=== PATIENT | female | born 2000 | race Caucasian/White ===

== ENCOUNTER 2024-11-16 09:43 | Outpatient (AMB) | payer OTHER, SELFPAY ==
--- NOTE | 2024-11-16 09:51 | A.OFFPC_ITS ---
Vital Signs 11/16/24 09:54 Height 5 ft 4.96 in Weight 149 lb 2 oz BMI 24.8 BP 94/64 Blood Pressure Location Lt brachial Position Sitting Respiration 12 Pulse 86 Pulse Source Pulse Oximeter Pulse Oximetry (%) 97 Oxygen Delivery Method Room Air Oxygen Flow Rate 97.8 Intake Visit Reasons: Ear infection Intake Note: Left ear pain, both ears blocked. Obgyn Specialist Required: No Allergies No Known Allergies Allergy (Verified 11/16/24 09:55) Medication List - Last Reconciled 11/16/24 by Margaret Clark PA-C cetirizine (Zyrtec) 10 mg PO DAILY PRN norethindrone-e.estradiol-iron 1.5 mg-30 mcg (21)/75 mg (7) ( FE .12/09 ()) 1 tab PO DAILY Tobacco use date assessed: 11/16/24 Dental Screening Dental Screen Date: 11/16/24 Did you have a dental visit in the last 12 months?: Yes Did you have a dental problem in the last 6 months where you did not have access to dental care?: No Was dental information given to patient?: Patient has dentist HPI Ear infection HPI Details Patient is a 24-year-old female who presents today to establish care and for an acute problem visit. She denies any significant past medical history. Heme: She is a bit concerned because she feels that she bruises very easily. She states that she would like labs to make sure that there is nothing wrong. She had a cousin who of leukemia recently and her maternal grandmother has CLL. She also does endorse feeling tired a lot. She is not sure if it is related to life or there is something wrong. She does sleep well. No snoring. Does get regular menses that she is on OCPs. HEENT: Does report today that she made this appointment because she has been having left-sided ear pain and popping along with some right-sided ear discomfort, sinus pain and pressure for the last 2 weeks. She says that she had a cold 2 weeks ago it started to get better last week but then it came back in over the last week it has gotten worse. No fevers or chills. She is compliant with Zyrtec. MSK: She does report having some joint pain, back pain and just generalized discomfort. She says specifically her right knee has been painful for the last year. It is mostly in the medial aspect. At times it feels like it gives out. She has tried resting, stretching and massage therapy. She does like exercising and states that sometimes she feels limited with what she can do. She saw a massage therapist who states that she is not exactly sure what is wrong with it. No swelling. There was no specific trauma. Never had surgery for this. Tag Maker: Up-to-date REPLACED BY [facility] Medical History (Updated 11/16/24 @ 12:50 by Margaret Clark PA-C) No history of major surgery within 1 month Family History (Updated 11/16/24 @ 10:58 by Vibha Brown CMA) Maternal Grandfather Anxiety HTN (hypertension) High blood cholesterol Cardiovascular disease Maternal Grandmother Anxiety High blood cholesterol Cardiovascular disease Mother Anxiety Asthma Enlarged thyroid Other FH: mental illness Substance abuse Social History Housing: House Patient Tobacco Use Status: Never used Tobacco e-Cigarette/Vaping Use: Never Used Second Hand Smoke Exposure: No Current occupational status: employed and student 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 Going to school to be a nurse Current occupational exposures/hazards: No Cognitive needs: No Hearing needs: No Vision needs: Yes (glasses) Questionnaire PHQ-9 Over the last 2 weeks, how often have you been bothered by any of the following problems? 1. Little interest or pleasure in doing things: not at all 2. Feeling down, depressed, or hopeless: not at all 3. Trouble falling or staying asleep, or sleeping too much: not at all 4. Feeling tired or having little energy: not at all 5. Poor appetite or overeating: not at all 6. Feeling bad about yourself - or that you are a failure or have let yourself or your family down: not at all 7. Trouble concentrating on things, such as reading the newspaper or watching television: several days 8. Moving or speaking so slowly that other people could have noticed. Or the opposite - being so fidgety or restless that you have been moving around a lot more than usual: not at all 9. Thoughts that you would be better off or of hurting yourself in some wa y: not at all Total score: 1 Depression Screening Interpretation: Negative Depression Screening Done: Yes 69908 - PHQ-9 Billing: Yes Source: Developed by Drs. Donald Ospina, Noa Smith, Philippe Devi and colleagues, with an educational sarai from [employer]. Thrive Questionnaire Date Thrive assessed: 11/16/24 I am a: Patient What is your living situation today?: I have a steady place to live Within the past 12 months, did the food you bought not last and you didn't have the money to get more?: Never true Within the past 12 months, did you worry whether your food would run out before you got money to buy more?: Never true Do you have trouble paying for medicines?: No Do you have trouble getting transportation to medical appointments?: No Do you have trouble paying your heating and electricity bill?: No Do you have trouble taking care of your child, family member or friend?: No Do you have trouble with day-to-day activities such as bathing, preparing meals, shopping, managing finances, etc.?: No Are you currently unemployed and looking for a job?: No Are you interested in more education?: No Currently or been in a relationship where the following occur: No concerns reported THRIVE Score: 0 AUDIT C Alcohol Use Questionnaire (AUDIT-C) 1. How often do you have a drink containing alcohol?: Monthly or less 2. How many drinks containing alcohol do you have on a typical day when you are drinking?: 1 or 2 3. How often do you have six or more drinks on one occasion?: Never Total Score: 1 EFREN-7 AMB Questionnaire EFREN-7 Date EFREN - 7 assessed: 11/16/24 Feeling nervous, anxious, or on edge: 1 = Several days Not being able to stop or control worryin = Not at all Worrying too much about different things: 1 = Several days Trouble relaxin = Not at all Being so restless that it is hard to sit still: 1 = Several days Becoming easily annoyed or irritable: 0 = Not at all Feeling afraid as if something awful might happen: 0 = Not at all Total EFREN-7 score (0-4 normal; 5-9 mild; 10-14 moderate; 15-21 severe): 3 Source: Developed by Drs. Donald Ospina, Noa mSith, Philippe Devi and colleagues, with an educational sarai from [employer]. EFREN-7 Assessment Billing EFREN-7 Assessment Tool: EFREN-7 Assessment 89562 Physical exam (Primary Care) Vital Signs: Last Vital Signs Pulse 86 11/16/24 09:54 Resp 12 11/16/24 09:54 BP 94/64 11/16/24 09:54 Pulse Ox 97 11/16/24 09:54 Oxygen Delivery Method Room Air 11/16/24 09:54 Oxygen Flow Rate 97.8 11/16/24 09:54 BMI result Body Mass Index 24.8 Tobacco/Smoking Status: Tobacco use Status Tobacco use date assessed 11/16/24 11/16/24 10:05 Patient Tobacco Use Status Never used Tobacco 11/16/24 10:05 e-Cigarette/Vaping Use Never Used 11/16/24 10:05 Depression Screening Interpretation: Negative Currently or been in a relationship where the following occur: No concerns reported Const Orientation/consciousness: patient oriented x3 HENMT Other: TMs are dome-shaped with an effusion noted on the left. There is some dulling of the TMs bilaterally. Nasal mucosa erythematous and edematous. Purulent drainage noted. Left maxillary sinus tenderness present. The posterior oropharynx is slightly erythematous. cervical lymphadenopathy noted Ears: hearing grossly normal bilaterally Neck Thyroid: Thyroid normal Resp Auscultation: clear to auscultation bilaterally Cardio Rate: regular rate Rhythm: regular rhythm Heart sounds: S1 normal heart sound present and S2 normal heart sound present GI Inspection: Yes normal to inspection Palpation (GI): Soft to palpation and Other GI palpation findings present (nontender, no cva tenderness) Auscultation: normoactive bowel sounds Rectal Exam - Female: deferred Skin General skin exam: no rashes or lesions noted Neuro General: patient oriented x3, gait normal and no focal motor deficits Coding Level of Care Code New Pt Level 3 (06933) Complex EM visit Add On G2211 Diagnoses Easy bruising R23.3 Fatigue R53.83 Right knee pain M25.561 Bacterial sinusitis J32.9; B96.89 Additional Codes EFREN-7 Assessment Billing - EFREN-7 Assessment Tool: EFREN-7 Assessment 73203 ([id number]) PHQ-9 - 58299 - PHQ-9 Billing: Yes ([id number]) Assessment & Plan Assessment & Plan (1) Easy bruising: Code(s): R23.3 - Spontaneous ecchymoses Category: Medical Plan: Labs ordered today. We will follow up Denies any bruising around the belt line, petechial rashes, spontaneous bloody noses, easy bleeding of the gums (2) Fatigue: Code(s): R53.83 - Other fatigue Category: Medical Plan: Labs ordered (3) Right knee pain: Code(s): M25.561 - Pain in right knee Category: Medical Plan: X-ray ordered Referral to ortho (4) Bacterial sinusitis: Code(s): J32.9 - Chronic sinusitis, unspecified; B96.89 - Other specified bacterial agents as the cause of diseases classified elsewhere Plan: We will start Augmentin and Flonase. Discussed risks and benefits and adverse effects of this medication. Orders: Orders IRON PROFILE Today R23.3 - Spontaneous ecchymoses, R53.83 - Other fatigue Ferritin Today R23.3 - Spontaneous ecchymoses, R53.83 - Other fatigue Erythrocyte Sedimentation Rate Today R23.3 - Spontaneous ecchymoses, R53.83 - Other fatigue Vitamin B12 and Folate Today R23.3 - Spontaneous ecchymoses, R53.83 - Other fatigue Rheumatoid Factor Today R23.3 - Spontaneous ecchymoses, R53.83 - Other fatigue XR knee RT 2V Today M25.561 - Pain in right knee, M25.562 - Pain in left knee Complete Blood Count Auto Diff Today R23.3 - Spontaneous ecchymoses, R53.83 - Other fatigue Comprehensive [place]. Panel Fast Today R23.3 - Spontaneous ecchymoses, R53.83 - Other fatigue DANTE Reflex Titer and Pattern Today R23.3 - Spontaneous ecchymoses, R53.83 - Other fatigue Magnesium Today R23.3 - Spontaneous ecchymoses, R53.83 - Other fatigue TSH reflex Free T4 Today R23.3 - Spontaneous ecchymoses, R53.83 - Other fatigue Lyme IgG/IgM w/reflex to WB Today R23.3 - Spontaneous ecchymoses, R53.83 - Other fatigue Vitamin D 25-OH Total Today R23.3 - Spontaneous ecchymoses, R53.83 - Other fatigue Referrals Orthopedics Referral M25.561 - Pain in right knee Medications: New amoxicillin-pot clavulanate 385-125 mg 1 tab PO Q12H 20 tabs 0RF fluticasone propionate 50 mcg/actuation (Flonase Allergy Relief) administer into each nostril 2 sprays intranasal DAILY 16 grams 0RF
[2024-11-16 09:54] VITALS: BP 94/64; PULSE 86; RESP 12; O2SAT 97; BMI 24.8
--- OUTSIDE RECORDS SUMMARY | 2024-11-16 10:36 | XMS_ITS | Encounter Summary ---
Author Organization [facility] Address [address] [place], [place] [id number] Phone Care Team Providers Care Professor Of Languages Name Role Phone Serenity Antunez NP Primary Care Provider [phone] Encounter Details Date Type Department Care Team (Late st Contact Info) Description 10/24/2010 Conversion Encounter [facility] [address] [place] [address] Social History Tobacco Use Types Packs/Day Years Used Date Smoking Tobacco: Never Assessed Comments Unknown Sex and Gender Information Value Date Recorded Sex Assigned at Female 09/16/2023 8:18 AM EST Legal Sex Female 6:24 PM EDT Gender Identity Female 09/16/2023 8:18 AM EST Sexual Orientation Bisexual 09/16/2023 8: 18 AM EST documented as of this encounter Plan of Treatment Not on file documented as of this encounter Visit Diagnoses Not on filedocumented in this encounter Care Teams Professor Of Languages Relationship Specialty Start Date End Date Serenity Antunez NP [address] [place] [address] PCP - General Pediatrics 12/30/22 documented as of this encounter
--- OUTSIDE RECORDS SUMMARY | 2024-11-16 10:36 | XMS_ITS | Clinical Summary ---
Author Organization [facility] Address [address] [place] [phone] Phone Care Team Providers Care Lap Layer Name Role Phone Serenity Antunez NP Primary Care Provider [phone] Allergies No known active allergies Medications albuterol HFA (ProAir HFA) 108 (90 Base) MCG/ACT inhalerIndication s:Mild intermittent asthma without complication Inhale 2 puffs every 4 (four) hours as needed for wheezing or shortness of breath. 2 Units 2 03/21/20 24 Active cetirizine 10 MG tabletIndications :Seasonal allergic rhinitis due to pollen TAKE 1 TABLET BY MOUTH EVERY DAY AT NIGHT 90 tablet 03/23/20 24 Active FE .12/09 1.5-30 MG-MCG per tabletIndications :Encounter for surveillance of contraceptive pills TAKE 1 TABLET BY MOUTH EVERY DAY 84 tablet 2 11/04/19 25 Active FE .12/09 1.5-30 MG-MCG per tabletIndications :Encounter for surveillance of contraceptive pills TAKE 1 TABLET BY MOUTH EVERY DAY 84 tablet 3 10/20/19 24 025 Discontinued Active Problems Problem Noted Date Diagnosed Date Well adult exam 09/16/2023 Assessment & Plan (09/16/2023 9:34 AM EST): Growing and developing well [facility] counseling completed Young Adult Plan: Get 8-9 hours of sleep per night. Eat healthy diet including 5 servings fruits and vegetables, no daily soda or juice, 3 servings calcium rich foods daily. Get one hour of exercise daily. Wear seatbelt in car, helmet while riding bike. Dental checkup every 6 months If wears eyeglasses or contacts, vision exam yearly Personal space, safe sex, bullying counseling done. Influenza vaccine refused 08/08/2019 Extrinsic asthma 10/19/2017 Overview (08/06/2018): Reactive airway disease (493.00) Onset: 10/19/2017 Added by: Loan Lopez Assessment & Plan (09/16/2023 9:34 AM EST): Well controlled with albuterol as needed - usually with exercise. Generalized anxiety disorder 12/09/2012 Overview (08/06/2018): Anxiety (300.02) Onset: 12/09/2012 Added by: Loan Lopez Assessment & Plan (09/16/2023 9:34 AM EST): Doing ok. Considering therapy. Aware of [facility] here and will let us know if she would like a referral. Attention deficit disorder with hyperactivity Overview (08/06/2018): ADHD (314.01) Onset: 08/11/2012 Added by: Loan Lopez Assessment & Plan (09/16/2023 9:34 AM EST): Managed well without medication. Resolved Problems Problem Noted Date Diagnosed Date Resolved Date Sore throat 01/27/2020 08/15/2022 Seasonal allergic rhinitis due to pollen 03/30/2019 09/16/2023 Assessment & Plan (03/30/2019 11:46 AM EDT): Differential includes AOM, pneumonia, viral URI, allergic rhinitis. No signs of AOM or pneumonia. Most likely allergic rhinitis with pressure in the middle ear. No signs of viral illness. Discussed supportive therapy with fluids, loratadine and nasal saline rinse. Return for increasing or changes in ear pain, fever, trouble breathing or new symptom. Acute dysfunction of both eustachian tubes 09/27/2018 09/16/2023 Influenza vaccine refused 08/05/2018 Surveillance of previously p rescribed contraceptive pill 10/19/2017 09/16/2023 Overview (08/06/2018): Routine follow-up for control pill prescription (V25.41) Onset: 10/19/2017 Added by: Loan Lopez Encounters Date Type Department Care Team Description 11/01/2024 Refill [facility] [address] [place], [place] [address] Serenity Antunez, DAVID Encounter for surveillance of contraceptive pills from Last 3 Months Immunizations Immunization Administration Dates Next Due DTaP 5 03/02/2006, 3,2001,08/12,2001 H1N1 Inj 07/24/2009,06/21/2009 Hep A, ped/adol 02/03/2017,07/29/2016 Hep B, ped/adol 07/18/2002,2001,2001 Hib (PRP-T) 12/09/2002, 2,2001,05/27 IPV 03/02/2006, 3,2001,05/27 Influenza, injectable, MDCK, trivalent, preservative free 03/28/2024 Influenza, injectable, quadr ivalent, preservative free 08/14/2022,08/09/2020,08/08/2019 Influenza, intranasal, quadrivalent 06/18/2015,1 Influenza, intranasal, trivalent 013,07/29/2012,04/16/2011,04/11,06/02/2008 MMR 03/02/2006,03/30/2002 Meningococcal Conj (Menactra) MCV4P 07/30/2017,0 07/29/2012 Pneumococcal Polysaccharide 12/10/2007,0 2001,2001,05/27 Tdap 08/14/2022,07/29/2012 Varicella 03/31/2007,03/30/2002 Family History Medical History Relation Name Comments No Known Problems Half-Brother 1 Yifan No Known Problems Half-Brother 2 Danny No Known Problems Mother Sadie Relation Name Status Comments Father not in the picture Alive Half-Brother 1 Yifan Alive Half-Brother 2 Danny Alive Mother Sadie Alive Social History Tobacco Use Types Packs/Day Years Used Date Smoking Tobacco: Never Smokeless Tobacco: Never Comments:Never Smoker Alcohol Use Standard Drinks/Week Comments Yes 0 (1 standard drink = 0.6 oz pur e alcohol) Hunger/Food Answer Date Recorded In the last 12 months, did y ou or your family ever eat less than you felt you should because there wasn't enough money for food? No 03/21/2024 Stable Housing Answer Date Recorded Are you worried that in the next 2 months you may not have stable housing? No 03/21/2024 Transportation Concerns Answer Date Rec orded In the last 12 months, have you or your family ever had to go without healthcare because you didn't have a way to get there? No 03/21/2024 Hazards in Home Answer Date Recorded Think about the place you li ve. Do you have problems with any of the following? Pests (mice or roaches), mold, no/not working smoke detectors, water leaks, no window guards. No 2023 Financing Utilities Answer Date Recorde d In the last 12 months, has t he electric, gas, oil, or water company threatened to shut off your services in your home? No 03/21/2024 Safety at Home Answer Date Recorded Are you or your family worried about feeling saf e in your home? No 03/21/2024 Outside Support Answer Date Recorded Do you feel that you need mo re support from other people or programs to help you care for yourself or your family? No 03/21/2024 Understanding Health Concerns Answer Da te Recorded Do you need help understandi ng your or your child's healthcare needs (diagnosis, medications, plan, etc.)? No 03/21/2024 Financing Health Concerns Answer Date R ecorded In the last 12 months, was t here a time when your child needed to see a doctor or get medications or supplies but could not because of cost? No 03/21/2024 Missing School or Work Answer Date Garland rded Did you or your child miss s chool or work because of a health problem that could have been avoided? No 03/21/2024 Child Education Answer Date Recorded Do you have concerns about y our/your child's learning or behavior in school, preschool, or daycare? No 03/21/2024 Comments No Sex and Gender Information Value Date Recorded Sex Assigned at Female 09/16/2023 8:18 AM EST Legal Sex Female 6:24 PM EDT Gender Identity Female 09/16/2023 8:18 AM EST Sexual Orientation Bisexual 09/16/2023 8: 18 AM EST Last Filed Vital Signs Vital Sign Reading Time Taken Comments Blood Pressure 112/74 03/21/2024 8:04 AM EDT Pulse 80 09/16/2023 8:00 AM EST Temperature 36.6 ??C (97.9 ??F) 03/21/2024 8:04 AM ED T Respiratory Rate - - Oxygen Saturation - - Inhaled Oxygen Concentration - - Weight 70.8 kg (156 lb) 03/21/2024 8:04 AM EDT Height 166.4 cm (5' 5.5 ) 03/21/2024 8:04 AM EDT Body Mass Index 25.56 03/21/2024 8:04 AM EDT Plan of Treatment Health Maintenance Due Date Last Done Comments HPV Vaccines (1 - 3-dose series) 2016 Men B Vaccine (1 of 2 - Standard) 2017 COVID-19 Vaccine ( season) 2024 11/08/2020, 10/18/2020 Chlamydia and Gonorrhea Screening 07/13/2024 09/16/2023, 08/12/2021, 08/09/2020 DTaP,Tdap,and Td Vaccines (8 - Td or Tdap) 08/14/2032 08/14/2022, 07/29/2012, 03/02/2006, Additional history exists Hepatitis B Vaccines Completed 07/18/2002, 2001, 2001 HIB Vaccines Completed 12/09/2002, 0 07/2001, 2001, Additional history exists IPV Vaccines Completed 03/02/2006, 11/12, 2001, Additional history exists MMR Vaccines Completed 03/02/2006, 03/30/2002 Varicella Vaccines Completed 03/31/2007, 03/30/2002 Pneumococcal Vaccine Aged Out 12/10/2007, 2001, 2001, Additional history exists No longer eligible based on patient's age to complete this topic Hepatitis A Vaccines Completed 02/03/2017, 07/29/19 17 Meningococcal Vaccine Completed 07/30/2017, 013 Influenza Vaccines Completed 03/28/2024, 0 08/14/2022, 08/09/2020, Additional history exists Procedures * Due to [place] [employer] law, this organization might not be sharing sensitive test results. Procedure Name Priority Date/Time Associated Diagnosis Comments CHLAMYDIA GC AMP PROBE Routine 09/16/2023 8:10 AM EST Screening for STD (sexually transmitted disease) from Last 3 Months or Most Recently Relevant to Health Maintenance Results * Due to [place] [employer] law, this organization might not be sharing sensitive test results. * CHLAMYDIA GC AMP PROBE (09/16/2023 8:10 AM EST) Chlamydia Trachomatis, Amplified NEGATIVE (NEG) [facility] Comment: No Chlamydia Trachomatis RNA detected in this patient's sample ? (REFERENCE RANGE/NORMAL VALUE: NOT DETECTED) ? Note: This test uses upper cutter- mediated amplification method to detect rRNA from C. Trachomatis N.GONORRHOEAE AMP PROBE NEGATIVE (NEG) [facility] Comment: No Neisseria Gonorrhoeae RNA detected in this patient's sample ? (REFERENCE RANGE/NORMAL VALUE: NOT DETECTED) ? NOTE: This test uses upper cutter-mediated amplification method to detect rRNA from N.Gonorrhoeae. A negative result does not preclude infection. In the case of a negative urine result, testing of an endocervical(female) or urethral (male) specimen is recommended if there is high clinical suspicion of infection. Due to very high sensitivity of Nucleic Acid Amplification Test, false positive results may occur. Therefore, specimen handling is extremely important. In patients in whom the disease is unlikely, additional sample for testing should be considered after an initial positive result. The performance characteristics of this test have not been evaluated in children. The [employer] assay is not intended for the evaluation of suspected sexual abuse or for other medico-legal indications. The ordering provider should assess if the patient had consensual sex without risk of sexual abuse. Consult the [facility] if needed. Contact phone number . Therapeutic failure or success cannot be determined with the [employer] Combo2 assay since nucleic acid may persist following appropriate antimicrobial therapy. The Centers for Disease Control and Prevention (CDC) recommends confirmatory retesting using culture or a different nucleic acid amplification test when positive results occur, if indicated. CHLAM/GC AMP PROBE SPEC TYPE VAGINAL SPECIMEN [facility] Comment: Testing performed or reported by [facility], a Service of [facility], [facility] [place] [address] Luther Molina MD, Solar Energy Sales Specialist [facility]# [id number] Swab (Vagina) 09/16/2023 8:1 0 AM EST 09/16/2023 11:24 PM EST Serenity Antunez NP LAB MICROBIOLOGY - GENERAL ORD ERABLES Final Result [facility] from Last 3 Months or Most Recently Relevant to Health Maintenance Insurance [employer] [facility] [place] [id number] [place] [id number] Care Teams Lap Layer Relationship Specialty Start Date End Date Serenity Antunez NP [facility] [place] [address] PCP - General Pediatrics 12/30/22
== END 2024-11-16 10:43 | disposition home or self-care (01) ==
LOC: HO.HMCFM 09:43
PROVIDERS: PCP Internal Medicine; Visit Provider Physician Assistant
DX: R23.3 Spontaneous ecchymoses (principal); R53.83 Other fatigue; M25.561 Pain in right knee; J32.9 Chronic sinusitis, unspecified; B96.89 Other specified bacterial agents as the cause of diseases classified elsewhere

== ENCOUNTER → 2024-11-16 09:43 | Outpatient (BNVA) | payer OTHER, SELFPAY | PROVIDERS: PCP Internal Medicine; Visit Provider Physician Assistant | DX: R23.3 Spontaneous ecchymoses (principal); R53.83 Other fatigue; M25.561 Pain in right knee; J32.9 Chronic sinusitis, unspecified; B96.89 Other specified bacterial agents as the cause of diseases classified elsewhere | CPT/HCPCS: 87880; 96127 ==

== ENCOUNTER 2024-11-16 11:02 | Outpatient (REF) | payer OTHER, SELFPAY ==
--- OUTSIDE RECORDS SUMMARY | 2024-11-16 12:27 | XMS_ITS | Clinical Summary ---
Author Organization [facility] Address [address] [place] [id number] Phone Care Team Providers Care Business Info Consultant Name Role Phone Serenity Antunez NP Primary Care Provider [phone] Allergies No known active allergies Medications albuterol [...] 9:34 AM EST): Growing and developing well [facility] counseling completed Young Adult Plan: Get 8-9 [...] EST): Doing ok. Considering therapy. Aware of [facility] here and will let us know if [...] Type Department Care Team Description 11/01/2024 Refill [facility] [address] [place], [place] [address] Serenity Antunez, DAVID Encounter for surveillance of [...] Additional history exists Procedures * Due to [place] DailyStrength law, this organization might not be sharing sensitive test results. Procedure Name Priority Date/Time Associated Diagnosis Comments CHLAMYDIA GC AMP PROBE Routine 09/16/2023 8:10 AM EST Screening for STD (sexually transmitted disease) from Last 3 Months or Most Recently Relevant to Health Maintenance Results * Due to [place] DailyStrength law, this organization might not be sharing sensitive test results. * CHLAMYDIA GC AMP PROBE (09/16/2023 8:10 AM EST) Chlamydia Trachomatis, Amplified NEGATIVE (NEG) [facility] Comment: No Chlamydia Trachomatis RNA detected in this patient's sample ? (REFERENCE RANGE/NORMAL VALUE: NOT DETECTED) ? Note: This test uses side stitching machine operator- mediated amplification method to detect rRNA from C. Trachomatis N.GONORRHOEAE AMP PROBE NEGATIVE (NEG) [facility] Comment: No Neisseria Gonorrhoeae RNA detected in this patient's sample ? (REFERENCE RANGE/NORMAL VALUE: NOT DETECTED) ? NOTE: This test uses side stitching machine operator-mediated amplification method to detect rRNA from N.Gonorrhoeae. [...] have not been evaluated in children. The [employer] Combo2 assay is not intended for the evaluation of suspected sexual abuse or for other medico-legal indications. The ordering provider should assess if the patient had consensual sex without risk of sexual abuse. Consult the [facility] if needed. Contact phone number . Therapeutic failure or success cannot be determined with the Aptima Combo2 assay since nucleic acid may persist following appropriate antimicrobial therapy. The Centers for Disease Control and Prevention (CDC) recommends confirmatory retesting using culture or a different nucleic acid amplification test when positive results occur, if indicated. CHLAM/GC AMP PROBE SPEC TYPE VAGINAL SPECIMEN [facility] Comment: Testing performed or reported by [facility], a Service of [facility], [facility] [place] [address] Luther Molina MD, Blurb Writer [facility]# [id number] Swab (Vagina) 09/16/2023 8:1 0 AM EST 09/16/2023 11:24 PM EST Serenity Antunez NP LAB MICROBIOLOGY - GENERAL ORD ERABLES Final Result [facility] from Last 3 Months or Most Recently Relevant to Health Maintenance Insurance [employer] [facility] [place] [id number] [address] [place] [id number] Care Teams Business Info Consultant Relationship Specialty Start Date End Date Serenity Antunez NP [facility] [place] [address] PCP - General Pediatrics 12/30/22
--- OUTSIDE RECORDS SUMMARY | 2024-11-16 12:27 | XMS_ITS | Encounter Summary ---
Author Organization [facility] Address [address] [place], [place] [id number] Phone Care Team Providers Care Mortgage Consultant Name Role Phone Serenity Antunez NP Primary Care Provider [phone] Encounter Details Date Type Department Care Team (Late st Contact Info) Description 10/24/2010 Conversion Encounter [facility] [address] [place] [address] Social History Tobacco Use Types Packs/Day Years [...] on filedocumented in this encounter Care Teams Mortgage Consultant Relationship Specialty Start Date End Date Serenity Antunez NP [address] [place] [address] PCP - General Pediatrics 12/30/22 documented as of this encounter
[2024-11-16 14:19] LABS: MANUAL DIFF FLAG NO
[2024-11-16 14:25] LABS: Basophils Percent Auto 0.3 % (0-2); Eosinophils Absolute Auto 0.1 X10*3/uL (0.0-0.4); Eosinophils Percent Auto 1.1 % (0-4); Hematocrit 42.5 % (37.0-47.0); Hemoglobin 14.1 g/dl (12.0-16.0); Imm Gran Abs Auto 0.02 X10*3/uL (0.00-0.03); Imm Gran Pct Auto 0.3 % (0.0-0.4); Lymphocytes Absolute Auto 1.9 X10*3/uL (1.2-4.9); Lymphocytes Percent Auto 26.4 % (20-40); Mean Corpuscular HGB Conc 33.2 g/dl (31.0-35.0); Mean Corpuscular Hemoglobin 31.4 pg (27.0-33.0); Mean Corpuscular Volume 94.7 fL (80.0-98.0); Mean Platelet Volume 9.4 fL (9.4-12.3); Monocytes Absolute Auto 0.4 X10*3/uL (0.1-1.2); Monocytes Percent Auto 6.2 % (2-11); Neutrophils Absolute Auto 4.7 x10*3/uL (2.0-8.3); Neutrophils Percent Auto 65.7 % (45-73); Platelet Count 285 X10*3/uL (160-400); Red Blood Count 4.49 X10*6/uL (4.20-5.50); Red Cell Distribution Width 12.1 % (11.0-16.0); White Blood Count 7.1 X10*3/uL (4.8-10.8)
[2024-11-16 14:37] LABS: Rheumatoid Factor < 13.0 IU/mL (<15.0)
[2024-11-16 14:47] LABS: Alanine Aminotransferase 19 U/L (0-31); Albumin Level 4.2 g/dL (3.5-5.0); Alkaline Phosphatase 65 U/L (39-117); Anion Gap 11 (12-20); Aspartate Amino Transferase 27 U/L (5-31); Bilirubin Total 0.5 mg/dL (0.0-1.0); Blood Urea Nitrogen 10 mg/dL (9-16); Calcium 9.6 mg/dL (8.4-10.2); Carbon Dioxide 30 mmol/L (22-29); Chloride 104 mmol/L (96-108); Estimated Glomerular Filt Rate > 60; Glucose Fasting 87 mg/dL (60-99); Iron 65 mcg/dL (30-160); Magnesium 2.3 mg/dL (1.6-2.6); Percent Iron Saturation 20 % (15-50); Potassium 4.4 mmol/L (3.3-5.1); Sodium 141 mmol/L (135-145); Total Iron Binding Capacity 324 mcg/dL (228-428); Total Protein 7.3 g/dL (6.5-8.0); Unsaturated Iron Binding 259 ug/dL
[2024-11-16 14:53] LABS: Ferritin 46 ng/mL (10-122); TSH reflex Free T4 0.62 uIU/mL (0.32-4.0); Vitamin D 25-OH Total 149.8 ng/mL (>30)
[2024-11-16 15:10] LABS: Folate 7.5 ng/mL (> or = 4.0); Vitamin B12 623 pg/mL (200-900)
[2024-11-16 15:32] LABS: Erythrocyte Sedimentation Rate 16 MM/HR (0-20)
[2024-11-17 11:08] LABS: Lyme Abs Screen <0.90 index
[2024-11-18 08:28] LABS: Anti Nuclear Antibody Screen NEGATIVE (NEGATIVE)
== END 2024-11-16 11:03 | disposition home or self-care (01) ==
LOC: HO.WFDLDS 11:02
PROVIDERS: Visit Provider Physician Assistant
DX: R23.3 Spontaneous ecchymoses (principal); R53.83 Other fatigue
CPT/HCPCS: 36415; 80053; 82306; 82607; 82728; 82746; 83540; 83735; 84443; 85025; 85652; 86038; 86431; 86617; 86618

== ENCOUNTER 2025-01-18 09:35 | Outpatient (REF) | payer OTHER, SELFPAY ==
--- OUTSIDE RECORDS SUMMARY | 2025-01-18 08:43 | XMS_ITS | Clinical Summary ---
Author Organization [facility] Address [address] [place] [address] Phone Care Team Providers Care Fishing Vessel Deckhand Name Role Phone Unavailable Primary Care Provider Unavailabl e Allergies No known active allergies Medications albuterol HFA (ProAir HFA) 108 (90 Base) MCG/ACT inhalerIndications :Mild intermittent asthma without complication Inhale 2 puffs every 4 (four) hours as needed for wheezing or shortness of breath. 2 Units 2 4 Active cetirizine 10 MG tabletIndications: Seasonal allergic rhinitis due to pollen TAKE 1 TABLET BY MOUTH EVERY DAY AT NIGHT 90 tablet 4 Active .5 1.5-30 MG-MCG per tabletIndications: Encounter for surveillance of contraceptive pills TAKE 1 TABLET BY MOUTH EVERY DAY 84 tablet 2 5 Active Active Problems Problem Noted Date Diagnosed Date Well adult exam 09/16/2023 Assessment & Plan (09/16/2023 9:34 AM EST): Growing and developing well [facility] counseling completed Young Adult Plan: Get [...] EST): Doing ok. Considering therapy. Aware of [facility] here and will let us know if [...] Type Department Care Team Description 11/01/2024 Refill [facility] [address] [place] [address] Serenity Antunez, CREDENTIALER Encounter for surveillance of contraceptive pills from [...] t he electric, gas, oil, or water [employer] threatened to shut off your services in [...] 80 09/16/2023 8:00 AM EST Temperature 36.6 C (97.9 F) 03/21/2024 8:04 AM EDT Respiratory Rate - - Oxygen Saturation - [...] of 2 - Standard) 2017 COVID-19 Vaccine (3 - season) 2024 11/08/2020, 10/18/2020 Influenza Vaccines (#1) 2025 03/28/20 24, 08/14/2022, 08/09/2020, Additional history exists DTaP,Tdap,and Td Vaccines (8 - Td or Tdap) 08/14/2032 08/14/2022, 07/29/2012, 03/02/2006, Additional history exists Hepatitis B Vaccines Completed 07/18/2002, 2001, 2001 HIB Vaccines Completed 12/09/2002, 040 07/2001, 2001, Additional history exists IPV Vaccines Completed 03/02/2006, 11/12, 2001, Additional history exists MMR Vaccines Completed 03/02/2006, 03/30/2002 Varicella Vaccines Completed 03/31/2007, 03/30/2002 Pneumococcal Vaccine Aged Out 12/10/2007, 2001, 2001, Additional history exists No longer eligible based on patient's age to complete this topic Hepatitis A Vaccines Completed 02/03/2017, 07/29/19 17 Meningococcal Vaccine Completed 07/30/2017, 013 Procedures * Due to [place] SocStock law, this organization might not be sharing sensitive test results. Procedure Name Priority Date/Time Associated Diagnosis Comments CHLAMYDIA GC AMP PROBE Routine 09/16/2023 8:10 AM EST Screening for STD (sexually transmitted disease) from Last 3 Months or Most Recently Relevant to Health Maintenance Results * Due to [place] SocStock law, this organization might not be sharing sensitive test results. * CHLAMYDIA GC AMP PROBE (09/16/2023 8:10 AM EST) Chlamydia Trachomatis, Amplified NEGATIVE (NEG) [facility] Comment: No Chlamydia Trachomatis RNA detected in this patient's sample (REFERENCE RANGE/NORMAL VALUE: NOT DETECTED) Note: This test uses concrete paving supervisor- mediated amplification method to detect rRNA from C. Trachomatis N.GONORRHOEAE AMP PROBE NEGATIVE (NEG) [facility] Comment: No Neisseria Gonorrhoeae RNA detected in this patient's sample (REFERENCE RANGE/NORMAL VALUE: NOT DETECTED) NOTE: This test uses concrete paving supervisor-mediated amplification method to detect rRNA from N.Gonorrhoeae. [...] have not been evaluated in children. The Aptima Combo2 assay is not intended for the evaluation of suspected sexual abuse or for other medico-legal indications. The ordering provider should assess if the patient had consensual sex without risk of sexual abuse. Consult the [facility] if needed. Contact [...] CHLAM/GC AMP PROBE SPEC TYPE VAGINAL SPECIMEN [facility] Comment: Testing performed or reported by [facility], a Service of [facility], [facility] [place] [address] Luther Molina MD, Railroad Purchasing Agent [facility]# [id number] Swab (Vagina) 09/16/2023 8:1 0 AM EST 09/16/2023 11:24 PM EST Serenity Antunez NP LAB MICROBIOLOGY - GENERAL ORD ERABLES Final Result [facility] from Last 3 Months or Most Recently Relevant to Health Maintenance [place] [address] [employer]
== END 2025-01-18 09:36 | disposition home or self-care (01) ==
LOC: HO.HOSX 09:35
PROVIDERS: Visit Provider Orthopaedic Surgery
DX: Z13.89 Encounter for screening for other disorder (principal)

== ENCOUNTER 2025-02-01 08:58 | Outpatient (AMB) | payer OTHER, SELFPAY ==
--- NOTE | 2025-02-01 09:07 | A.OFFVIS_ITS ---
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 She describes her pain as sharp in nature. Most of the pain is along the medial aspect of her knee. The patient states that she injured her knee 1 year ago while working out. She had increased pain at that time. She has failed the last 6 weeks of conservative treatment which has included physical therapy exercises, resting, stretching, massage therapy, Tylenol and anti-inflammatory medicines. She states that she has had similar problems in her left knee as well. At this point she has minimal discomfort in her left knee. Allergies No Known Allergies Allergy (Verified 02/01/25 09:09) Medication List - Last Reconciled 02/01/25 by Mark Willis MD cetirizine (Zyrtec) 10 mg PO DAILY PRN PFSH Medical History (Updated 02/01/25 @ 09:25 by Mark Willis MD) No history of major surgery within 1 month Family History (Updated 11/16/24 @ 10:58 by Vibha Brown CMA) Maternal Grandfather Anxiety HTN (hypertension) High blood cholesterol Cardiovascular disease Maternal Grandmother Anxiety High blood cholesterol Cardiovascular disease Mother Anxiety Asthma Enlarged thyroid Other FH: mental illness Substance abuse Social History Housing: House Patient Tobacco Use Status: Never used Tobacco e-Cigarette/Vaping Use: Never Used Second Hand Smoke Exposure: No Current occupational status: employed and student 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 Current occupational exposures/hazards: No Cognitive needs: No Hearing needs: No Vision needs: Yes (glasses) Physical Exam Vital Signs: BMI result Body Mass Index 25.7 Const Other: Well-nourished well-developed very friendly female awake alert and oriented x3 in no acute distress Extrem Other: Right knee examination shows a minimal effusion, no crepitus with range of motion, tenderness along her medial joint line, positive Vijay's test, no instability Results Reviewed Results Reviewed: X-rays of the patient's right knee show minimal joint space narrowing, no acute bony abnormalities Assessment & Plan Assessment & Plan (1) Tear of medial meniscus of right knee: Code(s): S83.241A - Other tear of medial meniscus, current injury, right knee, initial encounter Category: Medical Plan Ms. Haynes presents with progressively worsening right knee pain and mechanical symptoms possibly due to a medial meniscus tear. Thus, I will send the patient for an MRI of her right knee for further evaluation. I will see her back once the MRI is completed to discuss the findings and treatment options. Feel free to call me at any time should questions regarding her orthopedic management arise. Thank you very much for asking me to see this very friendly patient. I spent 22 minutes in reviewing the patient's records and imaging studies, seeing the patient and documenting in the medical record. Orders: Orders XR knee RT 3V Today M25.561 - Pain in right knee MR knee RT wo con 02/02/25 S83.241A - Other tear of medial meniscus, current injury, right knee, initial encounter Coding Level of Care Code New Pt Level 3 (86748) Complex EM visit Add On G2211 Diagnoses Tear of medial meniscus of right knee S83.241A
[2025-02-01 09:11] VITALS: BMI 25.7
--- OUTSIDE RECORDS SUMMARY | 2025-02-01 09:24 | XMS_ITS | Clinical Summary ---
Author Organization [facility] Address [address] [place] [address] Phone Care Team Providers Care Waitstaff Name Role Phone Unavailable Primary Care Provider [...] 9:34 AM EST): Growing and developing well [facility] counseling completed Young Adult Plan: Get 8-9 [...] EST): Doing ok. Considering therapy. Aware of [facility] here and will let us know if [...] (V25.41) Onset: 10/19/2017 Added by: Loan Lopez Immunizations Immunization Administration Dates Next Due DTaP [...] COVID-19 Vaccine ( season) 2024 11/08/2020, 10/18/2020 Influenza Vaccines (#1) [...] Completed 07/30/2017, 013 Procedures * Due to [place] state law, this organization might not be sharing sensitive test results. Procedure Name Priority Date/Time Associated Diagnosis Comments CHLAMYDIA GC AMP PROBE Routine 09/16/2023 8:10 AM EST Screening for STD (sexually transmitted disease) from Last 3 Months or Most Recently Relevant to Health Maintenance Results * Due to [place] state law, this organization might not be sharing sensitive test results. * CHLAMYDIA GC AMP PROBE (09/16/2023 8:10 AM EST) Chlamydia Trachomatis, Amplified NEGATIVE (NEG) [facility] Comment: No Chlamydia Trachomatis RNA detected in this patient's sample (REFERENCE RANGE/NORMAL VALUE: NOT DETECTED) Note: This test uses bulk delivery driver- mediated amplification method to detect rRNA from C. Trachomatis N.GONORRHOEAE AMP PROBE NEGATIVE (NEG) [facility] Comment: No Neisseria Gonorrhoeae RNA detected in this patient's sample (REFERENCE RANGE/NORMAL VALUE: NOT DETECTED) NOTE: This test uses bulk delivery driver-mediated amplification method to detect rRNA from N.Gonorrhoeae. [...] without risk of sexual abuse. Consult the [facility] if needed. Contact phone number . Therapeutic failure or success cannot be determined with the Aptima Combo2 assay since nucleic acid may persist following appropriate antimicrobial therapy. The Centers for Disease Control and Prevention (CDC) recommends confirmatory retesting using culture or a different nucleic acid amplification test when positive results occur, if indicated. CHLAM/GC AMP PROBE SPEC TYPE VAGINAL SPECIMEN [facility] Comment: Testing performed or reported by [facility], a Service of [facility], [facility] [address], [place] [address] Luther Molina MD, Client Sales And Service Officer [facility]# [id number] Swab (Vagina) 09/16/2023 8:1 0 AM EST 09/16/2023 11:24 PM EST Serenity Antunez NP LAB MICROBIOLOGY - GENERAL ORD ERABLES Final Result [facility] from Last 3 Months or Most Recently Relevant to Health Maintenance Insurance [employer]
== END 2025-02-01 09:21 | disposition home or self-care (01) ==
LOC: HO.HOS 08:58
PROVIDERS: PCP Internal Medicine; Visit Provider Orthopaedic Surgery
DX: S83.241A Other tear of medial meniscus, current injury, right knee, initial encounter (principal)
CPT/HCPCS: 99203

== ENCOUNTER → 2025-02-01 09:00 | Outpatient (BNV) | payer OTHER, SELFPAY | PROVIDERS: Visit Provider Radiology Body Imaging | DX: M25.561 Pain in right knee (principal) | CPT/HCPCS: 73562 ==

== ENCOUNTER 2025-02-01 10:23 | Outpatient (REF) | payer OTHER, SELFPAY ==
--- NOTE | ~2025-02-01 | XR_ITS ---
EXAMINATION: XR KNEE, RIGHT CLINICAL INFORMATION: M25.561 - Pain in right knee COMPARISON: None available. TECHNIQUE: 3 views of the right knee. FINDINGS: No fracture. Alignment is anatomic. Joint spaces are maintained. Small suprapatellar joint effusion. No abnormal soft tissue calcification. XR/XR knee RT 3V IMPRESSION: No acute fracture or dislocation. Electronically signed by: Bhavesh Orlando MD 02/01/2025 10:01 AM EDT
--- OUTSIDE RECORDS SUMMARY | 2025-02-02 11:12 | XMS_ITS | Clinical Summary ---
Author Organization [facility] Address [address] [place] [address] Phone Care Team Providers Care Teleradiologist Name Role Phone Unavailable Primary Care Provider [...] 9:34 AM EST): Growing and developing well [facility] counseling completed Young Adult Plan: Get 8-9 [...] EST): Doing ok. Considering therapy. Aware of [facility] here and will let us know if [...] Completed 07/30/2017, 013 Procedures * Due to [place] state law, this organization might not be sharing sensitive test results. Procedure Name Priority Date/Time Associated Diagnosis Comments CHLAMYDIA GC AMP PROBE Routine 09/16/2023 8:10 AM EST Screening for STD (sexually transmitted disease) from Last 3 Months or Most Recently Relevant to Health Maintenance Results * Due to [place] state law, this organization might not be sharing sensitive test results. * CHLAMYDIA GC AMP PROBE (09/16/2023 8:10 AM EST) Chlamydia Trachomatis, Amplified NEGATIVE (NEG) [facility] Comment: No Chlamydia Trachomatis RNA detected in this patient's sample (REFERENCE RANGE/NORMAL VALUE: NOT DETECTED) Note: This test uses tooling inspector- mediated amplification method to detect rRNA from C. Trachomatis N.GONORRHOEAE AMP PROBE NEGATIVE (NEG) [facility] Comment: No Neisseria Gonorrhoeae RNA detected in this patient's sample (REFERENCE RANGE/NORMAL VALUE: NOT DETECTED) NOTE: This test uses tooling inspector-mediated amplification method to detect rRNA from N.Gonorrhoeae. [...] without risk of sexual abuse. Consult the [facility] if needed. Contact [...] CHLAM/GC AMP PROBE SPEC TYPE VAGINAL SPECIMEN [facility] Comment: Testing performed or reported by [facility], a Service of [facility], [facility] [address], [place] [address] Luther Molina MD, Vice President Of Academic Affairs [facility]# [id number] Swab (Vagina) 09/16/2023 8:1 0 AM EST 09/16/2023 11:24 PM EST Serenity Antunez NP LAB MICROBIOLOGY - GENERAL ORD ERABLES Final Result [facility] from Last 3 Months or Most Recently Relevant to Health Maintenance Insurance [employer]
== END 2025-02-01 10:24 | disposition home or self-care (01) ==
LOC: HO.HOSX 10:23
PROVIDERS: Visit Provider Orthopaedic Surgery
DX: S83.241A Other tear of medial meniscus, current injury, right knee, initial encounter (principal); M25.861 Other specified joint disorders, right knee; M25.561 Pain in right knee; M25.461 Effusion, right knee
CPT/HCPCS: 73562

== ENCOUNTER → 2025-02-13 19:27 | Outpatient (BNV) | payer OTHER, SELFPAY | PROVIDERS: PCP Internal Medicine; Visit Provider Radiology Diagnostic Radiology | DX: S83.241A Other tear of medial meniscus, current injury, right knee, initial encounter (principal) | CPT/HCPCS: 73721 ==

== ENCOUNTER 2025-02-13 19:28 | Outpatient (REF) | payer OTHER, SELFPAY ==
--- NOTE | ~2025-02-13 | MR_ITS ---
EXAMINATION: MRI RIGHT KNEE WITHOUT CONTRAST HISTORY: S83.241A - Other tear of medial meniscus, current injury, right knee COMPARISON: Correlation is made with plain films of the right knee dated 02/01/2025. TECHNIQUE: Coronal T1 and fat-suppressed proton density, sagittal proton density and fat-suppressed proton density, and axial fat suppressed T2 weighted MR images of the right knee were obtained. FINDINGS: Bone marrow: Bone marrow signal intensity is normal. Joint effusion: There is no joint effusion. Ann's cyst: There is no Ann's cyst. Articular cartilage: There is mild thinning of the patellar cartilage. Muscles/soft tissues: The visualized muscles demonstrate normal signal intensity. Anterior cruciate ligament: Intact Posterior cruciate ligament: Intact Medial collateral ligament: Intact Lateral collateral ligament: Intact Medial meniscus: Intact Lateral meniscus: Intact Flexor mechanism: The popliteus, gastrocnemius, and hamstring tendons are intact. Quadriceps tendon: Intact Patellar tendon: Intact Patellar retinacula: Intact MR/MR knee RT wo con IMPRESSION: Mild thinning of the patellar cartilage. Otherwise unremarkable MRI of the right knee. Electronically signed by: Donald Morgan MD 02/14/2025 07:29 AM EDT
== END 2025-02-13 19:29 | disposition home or self-care (01) ==
LOC: HO.MRI 19:28
PROVIDERS: PCP Internal Medicine; Visit Provider Orthopaedic Surgery
DX: S83.241A Other tear of medial meniscus, current injury, right knee, initial encounter (principal)
CPT/HCPCS: 73721

== ENCOUNTER 2025-02-20 14:30 | Outpatient (AMB) | payer OTHER, SELFPAY ==
--- NOTE | 2025-02-20 14:32 | MHC.OFFVIS ---
Vital Signs 02/20/25 14:33 Height 5 ft 5 in Weight 150 lb BMI 25.0 Intake Visit Reasons: OV- Right knee MRI review Intake Note: Geni is a 24 year old female who presents with complaints of intermittent right knee pain. She describes her pain as sharp in nature. Most of the pain is along the medial aspect of her knee. The patient states that she injured her knee 1 year ago while working out. She had increased pain at that time. She has failed the last 6 weeks of conservative treatment which has included physical therapy exercises, resting, stretching, massage therapy, Tylenol and anti-inflammatory medicines. She states that she has had similar problems in her left knee as well. At this point she has minimal discomfort in her left knee. Allergies No Known Allergies Allergy (Verified 02/20/25 14:35) Medication List - Last Reconciled 02/21/25 by Mark Willis MD cetirizine (Zyrtec) 10 mg PO DAILY PRN PFSH Medical History (Updated 02/20/25 @ 14:47 by Mark Willis MD) No history of major surgery within 1 month Family History (Updated 11/16/24 @ 10:58 by Vibha Brown CMA) Maternal Grandfather Anxiety HTN (hypertension) High blood cholesterol Cardiovascular disease Maternal Grandmother Anxiety High blood cholesterol Cardiovascular disease Mother Anxiety Asthma Enlarged thyroid Other FH: mental illness Substance abuse Social History Housing: House Patient Tobacco Use Status: Never used Tobacco e-Cigarette/Vaping Use: Never Used Second Hand Smoke Exposure: No Current occupational status: employed and student 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 Current occupational exposures/hazards: No Cognitive needs: No Hearing needs: No Vision needs: Yes (glasses) Physical Exam Vital Signs: BMI result Body Mass Index 25.0 Const Other: Well-nourished well-developed very friendly female awake alert and oriented x3 in no acute distress Extrem Other: Right knee examination shows a minimal effusion, minimal crepitus with range of motion, no instability Results Reviewed Results Reviewed: MRI of the patient's right knee shows mild patellar cartilage thinning, no evidence of meniscus or ligamentous injury Assessment & Plan Assessment & Plan (1) Right knee pain: Code(s): M25.561 - Pain in right knee Category: Medical Plan Ms. Haynes presents with intermittent right knee pain due to patellofemoral syndrome. I had a lengthy discussion with the patient regarding the treatment options. I did give her a prescription for formal physical therapy. She will continue with her activity modifications. She will follow up with me on an as-needed basis should her symptoms not plateau at an unacceptable level over the next few months. I spent 20 minutes in reviewing the patient's records and imaging studies, seeing the patient and documenting in the medical record. Orders: Orders PT Evaluation and Treatment Today M22.2X1 - Patellofemoral disorders, right knee, M22.2X2 - Patellofemoral disorders, left knee Coding Level of Care Code Est Pt Level 3 (06005) Complex EM visit Add On G2211 Diagnoses Right knee pain M25.561
[2025-02-20 14:33] VITALS: BMI 25.0
--- OUTSIDE RECORDS SUMMARY | 2025-02-20 14:57 | XMS_ITS | Clinical Summary ---
Author Organization [facility] Address [address] [place] [address] Phone Care Team Providers Care Classification Inspector Name Role Phone Unavailable Primary Care Provider [...] 9:34 AM EST): Growing and developing well [facility] counseling completed Young Adult Plan: Get 8-9 [...] Doing ok. Considering therapy. Aware of [facility] here and will let us know if [...] Completed 07/30/2017, 013 Procedures * Due to [place] state law, this organization might not be sharing sensitive test results. Procedure Name Priority Date/Time Associated Diagnosis Comments CHLAMYDIA GC AMP PROBE Routine 09/16/2023 8:10 AM EST Screening for STD (sexually transmitted disease) from Last 3 Months or Most Recently Relevant to Health Maintenance Results * Due to [place] state law, this organization might not be sharing sensitive test results. * CHLAMYDIA GC AMP PROBE (09/16/2023 8:10 AM EST) Chlamydia Trachomatis, Amplified NEGATIVE (NEG) [facility] Comment: No Chlamydia Trachomatis RNA detected in this patient's sample (REFERENCE RANGE/NORMAL VALUE: NOT DETECTED) Note: This test uses milling machine operator gear- mediated amplification method to detect rRNA from C. Trachomatis N.GONORRHOEAE AMP PROBE NEGATIVE (NEG) [facility] Comment: No Neisseria Gonorrhoeae RNA detected in this patient's sample (REFERENCE RANGE/NORMAL VALUE: NOT DETECTED) NOTE: This test uses milling machine operator gear-mediated amplification method to detect rRNA from N.Gonorrhoeae. [...] without risk of sexual abuse. Consult the [facility] if needed. Contact [...] CHLAM/GC AMP PROBE SPEC TYPE VAGINAL SPECIMEN [facility] Comment: Testing performed or reported by [facility], a Service of [facility], [facility] [address] [place] [address] Luther Molina MD, Rn Pediatric I[facility]# [id number] Swab (Vagina) 09/16/2023 8:1 0 AM EST 09/16/2023 11:24 PM EST Serenity Antunez NP LAB MICROBIOLOGY - GENERAL ORD ERABLES Final Result BARBARA from Last 3 Months or Most Recently Relevant to Health Maintenance Insurance [employer]
== END 2025-02-20 14:49 | disposition home or self-care (01) ==
LOC: HO.HOS 14:31
PROVIDERS: PCP Internal Medicine; Visit Provider Orthopaedic Surgery
DX: M25.561 Pain in right knee (principal)
CPT/HCPCS: 99213

== ENCOUNTER 2025-06-26 13:02 | Outpatient (REF) | payer OTHER, SELFPAY ==
[2025-06-26 18:03] LABS: MANUAL DIFF FLAG NO
[2025-06-26 18:17] LABS: Hematocrit 40.0 % (37.0-47.0); Hemoglobin 13.3 g/dl (12.0-16.0); Imm Gran Abs Auto 0.02 X10*3/uL (0.00-0.03); Imm Gran Pct Auto 0.3 % (0.0-0.4); Lymphocytes Absolute Auto 2.7 X10*3/uL (1.2-4.9); Mean Corpuscular HGB Conc 33.3 g/dl (31.0-35.0); Mean Corpuscular Hemoglobin 31.7 pg (27.0-33.0); Mean Corpuscular Volume 95.2 fL (80.0-98.0); NRBC Abs Auto 0.000 X10*3/uL (0.0-0.012); NRBC Pct Auto 0.0 /100WBC (0.0-0.2); Platelet Count 281 X10*3/uL (160-400); Red Blood Count 4.20 X10*6/uL (4.20-5.50); White Blood Count 7.1 X10*3/uL (4.8-10.8)
[2025-06-26 18:57] LABS: Alanine Aminotransferase 17 U/L (0-31); Albumin Level 4.7 g/dL (3.5-5.0); Alkaline Phosphatase 55 U/L (39-117); Anion Gap 12 (12-20); Aspartate Amino Transferase 27 U/L (5-31); Blood Urea Nitrogen 11 mg/dL (9-16); Calcium 9.7 mg/dL (8.4-10.2); Carbon Dioxide 26 mmol/L (22-29); Chloride 106 mmol/L (96-108); Cholesterol 214 mg/dL (<200); Estimated Glomerular Filt Rate > 60; HDL Cholesterol 74 mg/dL (>40); Potassium 4.4 mmol/L (3.3-5.1); Sodium 140 mmol/L (135-145); Total Protein 7.4 g/dL (6.5-8.0); Triglycerides 73 mg/dL (<150)
--- OUTSIDE RECORDS SUMMARY | 2025-06-26 20:01 | XMS_ITS | Clinical Summary ---
Author Organization [facility] Address [address] [place] [address] Phone Care Team Providers Care Plastic Tile Layer Name Role Phone Unavailable Primary Care Provider [...] 9:34 AM EST): Growing and developing well [facility] counseling completed Young Adult Plan: Get [...] EST): Doing ok. Considering therapy. Aware of [facility] here and will let us know if [...] HPV Vaccines (1 - 3-dose series) 2016 Influenza Vaccines (#1) 2025 03/28/20 24, 08/14/2022, 08/09/2020, Additional history exists COVID-19 Vaccine ( season) 2025 11/08/2020, 10/18/2020 DTaP,Tdap,and Td Vaccines (8 - Td or Tdap) 08/14/2032 08/14/2022, 07/29/2012, 03/02/2006, Additional history exists Hepatitis B Vaccines Completed 07/18/2002, 2001, 2001 HIB Vaccines Completed 12/09/2002, 07/2001, 2001, Additional history exists IPV Vaccines Completed 03/02/2006, 11/12, 2001, Additional history exists MMR Vaccines Completed 03/02/2006, 03/30/2002 Varicella Vaccines Completed 03/31/2007, 03/30/2002 Pneumococcal Vaccine Aged Out 12/10/2007, 2001, 2001, Additional history exists No longer eligible based on patient's age to complete this topic Hepatitis A Vaccines Completed 02/03/2017, 07/29/19 17 Meningococcal Vaccine Completed 07/30/2017, 013 Men B Vaccine Aged Out No longer elig ible based on patient's age to complete this topic Procedures * Due to [place] state law, this organization might not be sharing sensitive test results. Procedure Name Priority Date/Time Associated Diagnosis Comments CHLAMYDIA GC AMP PROBE Routine 09/16/2023 8:10 AM EST Screening for STD (sexually transmitted disease) from Last 3 Months or Most Recently Relevant to Health Maintenance Results * Due to [place] state law, this organization might not be sharing sensitive test results. * CHLAMYDIA GC AMP PROBE (09/16/2023 8:10 AM EST) Chlamydia Trachomatis, Amplified NEGATIVE (NEG) [facility] Comment: No Chlamydia Trachomatis RNA detected in this patient's sample (REFERENCE RANGE/NORMAL VALUE: NOT DETECTED) Note: This test uses tipple engineer- mediated amplification method to detect rRNA from C. Trachomatis N.GONORRHOEAE AMP PROBE NEGATIVE (NEG) [facility] Comment: No Neisseria Gonorrhoeae RNA detected in this patient's sample (REFERENCE RANGE/NORMAL VALUE: NOT DETECTED) NOTE: This test uses tipple engineer-mediated amplification method to detect rRNA from N.Gonorrhoeae. [...] risk of sexual abuse. Consult the [facility] if needed. Contact [...] CHLAM/GC AMP PROBE SPEC TYPE VAGINAL SPECIMEN [facility] Comment: Testing performed or reported by [facility], a Service of [facility], [facility] [address], [place] [address] Luther Molina MD, Aeronautical Engineering Officer [facility]# [id number] Swab (Vagina) 09/16/2023 8:1 0 AM EST 09/16/2023 11:24 PM EST Serenity Antunez NP LAB MICROBIOLOGY - GENERAL ORD ERABLES Final Result BARBARA from Last 3 Months or Most Recently [place]vant [place] [address] [employer]
--- OUTSIDE RECORDS SUMMARY | 2025-06-26 20:01 | XMS_ITS | Encounter Summary ---
Author Organization [facility] Address [address] [place], [place] [address] Phone Care Team Providers Care Crm Administrator Name Role Phone Serenity Antunez NP Primary Care Provider [phone] Encounter Details Date Type Department Care Team (Late st Contact Info) Description 10/24/2010 Conversion Encounter [facility] [address] [facility] [facility] [place] [address] Social History Tobacco Use Types Packs/Day Years [...] on filedocumented in this encounter Care Teams Crm Administrator Relationship Specialty Start Date End Date Serenity Antunez NP [address] [facility] [facility] [place] [address] PCP - General Pediatrics 12/30/22 12/21/24 documented as of this encounter
[2025-06-27 06:49] LABS: Lyme Abs Screen <0.90 index
[2025-06-27 22:13] LABS: A. Phagocytphilium DNA,RT-PCR NOT DETECTED (NOT DETECTED); Babesia Microti DNA, RT-PCR NOT DETECTED (NOT DETECTED); Borrelia Miyamotoi,DNA RT-PCR NOT DETECTED (NOT DETECTED); E.Chaffeensis DNA RT-PCR NOT DETECTED (NOT DETECTED); Lyme(Borrelia ssp)DNA RT-PCR NOT DETECTED (NOT DETECTED)
== END 2025-06-26 13:03 | disposition home or self-care (01) ==
LOC: HO.WFDLDS 13:02
PROVIDERS: PCP Internal Medicine; Visit Provider Internal Medicine
DX: M22.2X1 Patellofemoral disorders, right knee (principal); M22.2X2 Patellofemoral disorders, left knee; M25.561 Pain in right knee; R53.83 Other fatigue; R23.3 Spontaneous ecchymoses; R41.840 Attention and concentration deficit; G89.29 Other chronic pain; Z79.899 Other long term (current) drug therapy
CPT/HCPCS: 36415; 80053; 80061; 84443; 85025; 86200; 86617; 86618; 87468; 87469; 87478; 87484; 87798; 96127

== ENCOUNTER 2025-06-26 13:02 | Outpatient (AMB) | payer OTHER, SELFPAY ==
--- NOTE | 2025-06-26 13:13 | MHC.PC.OV ---
Vital Signs 06/26/25 13:17 Height 5 ft 5 in Weight 148 lb 4 oz BMI 24.7 BP 108/67 Blood Pressure Location Lt brachial Position Sitting Respiration 12 Pulse 55 Pulse Source Pulse Oximeter Temp 97.7 F Temp Source Oral Pulse Oximetry (%) 100 Oxygen Delivery Method Room Air Intake Visit Reasons: est care Intake Note: DASHA to establish care Communications Professional Required: No Allergies No Known Allergies Allergy (Verified 06/26/25 13:14) Tobacco use date assessed: 06/26/25 Dental Screening Dental Screen Date: 06/26/25 Did you have a dental visit in the last 12 months?: Yes Did you have a dental problem in the last 6 months where you did not have access to dental care?: No Was dental information given to patient?: Patient has dentist HPI HPI Comments History of Present Illness Details 25 year old female with pmhx allergies, attention deficit, right knee pain presenting for follow up Allergies are stable on zyrtec She has a history of attentin deficit. Took medications in childhood. Is finding her attention very poor during class especially but during day to day activities as well. MSK: Her right medial knee has been painful for the last year. It is mostly in the medial aspect. At times it feels like it gives out. She has tried resting, stretching and massage therapy. MRI showed mild arthritic changes. She saw ortho. It continues to hurt despite exercise stretches. She has persistent discomfort in the distal tibia where she injured herself lifting 50 pound weight last year. 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 NAD EYES: EOMI. Anicteric. HENT: Moist mucous membranes. No scleral icterus. No cervical lymphadenopathy. LUNGS: Clear to auscultation bilaterally. CARDIOVASCULAR: Regular rate and rhythm. No murmur. No JVD. ABDOMEN: Soft, non-tender +bs MSK: Mild prepatellar bursal prominence. Scar on the distal right tibia EXTREMITIES: No edema. Non-tender. SKIN: No rashes or lesions. Warm. NEUROLOGIC: No focal neurological deficits. CN II-XII grossly intact PSYCHIATRIC: Cooperative. Appropriate mood and affect [facility] Medical History (Updated 06/26/25 @ 13:50 by Selena Hagan MD) No history of major surgery within 1 month Family History (Updated 11/16/24 @ 10:58 by Vibha Brown CMA) Maternal Grandfather Anxiety HTN (hypertension) High blood cholesterol Cardiovascular disease Maternal Grandmother Anxiety High blood cholesterol Cardiovascular disease Mother Anxiety Asthma Enlarged thyroid Other FH: mental illness Substance abuse Social History Housing: House Patient Tobacco Use Status: Never used Tobacco e-Cigarette/Vaping Use: Never Used Second Hand Smoke Exposure: No Current occupational status: employed and student 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 Going to school to be a nurse Current occupational exposures/hazards: No Cognitive needs: No Hearing needs: No Vision needs: Yes (glasses) Questionnaire PHQ-9 Over the last 2 weeks, how often have you been bothered by any of the following problems? 1. Little interest or pleasure in doing things: not at all 2. Feeling down, depressed, or hopeless: not at all 3. Trouble falling or staying asleep, or sleeping too much: not at all 4. Feeling tired or having little energy: several days 5. Poor appetite or overeating: not at all 6. Feeling bad about yourself - or that you are a failure or have let yourself or your family down: not at all 7. Trouble concentrating on things, such as reading the newspaper or watching television: several days 8. Moving or speaking so slowly that other people could have noticed. Or the opposite - being so fidgety or restless that you have been moving around a lot more than usual: not at all 9. Thoughts that you would be better off or of hurting yourself in some way: not at all Total score: 2 Depression Screening Interpretation: Negative Depression Screening Done: Yes 58185 - PHQ-9 Billing: Yes Source: Developed by Drs. Donald Ospina, Noa Smith, Philippe Devi and colleagues, with an educational sarai from [employer]. Thrive Questionnaire Date Thrive assessed: 06/26/25 I am a: Patient What is your living situation today?: I have a steady place to live Within the past 12 months, did the food you bought not last and you didn't have the money to get more?: Never true Within the past 12 months, did you worry whether your food would run out before you got money to buy more?: Never true Do you have trouble paying for medicines?: No Do you have trouble getting transportation to medical appointments?: No Do you have trouble paying your heating and electricity bill?: No Do you have trouble taking care of your child, family member or friend?: No Do you have trouble with day-to-day activities such as bathing, preparing meals, shopping, managing finances, etc.?: No Are you currently unemployed and looking for a job?: No Are you interested in more education?: Yes Please select the resources that you would like help with: None Currently or been in a relationship where the following occur: No concerns reported THRIVE Score: 0 AUDIT C Alcohol Use Questionnaire (AUDIT-C) 1. How often do you have a drink containing alcohol?: Never 3. How often do you have six or more drinks on one occasion?: Never Total Score: 0 EFREN-7 AMB Questionnaire EFREN-7 Date EFREN - 7 assessed: 06/26/25 Feeling nervous, anxious, or on edge: 2 = More than half the days Not being able to stop or control worryin = More than half the days Worrying too much about different things: 2 = More than half the days Trouble relaxin = Not at all Being so restless that it is hard to sit still: 2 = More than half the days Becoming easily annoyed or irritable: 0 = Not at all Feeling afraid as if something awful might happen: 2 = More than half the days Total EFREN-7 score (0-4 normal; 5-9 mild; 10-14 moderate; 15-21 severe): 10 Source: Developed by Drs. Donald Ospina, Noa Smith, Philippe Devi and colleagues, with an educational sarai from [employer]. EFREN-7 Assessment Billing EFREN-7 Assessment Tool: EFREN-7 Assessment 84137 Physical exam (Primary Care) Vital Signs: Last Vital Signs Temp 97.7 F 06/26/25 13:17 Pulse 55 06/26/25 13:17 Resp 12 06/26/25 13:17 BP 108/67 06/26/25 13:17 Pulse Ox 100 06/26/25 13:17 Oxygen Delivery Method Room Air 06/26/25 13:17 BMI result Body Mass Index 24.7 Tobacco/Smoking Status: Tobacco use Status Tobacco use date assessed 06/26/25 06/26/25 13:14 Patient Tobacco Use Status Never used Tobacco 06/26/25 13:14 e-Cigarette/Vaping Use Never Used 06/26/25 13:14 PHQ-9: PHQ-9 Score PHQ-9: Total score 2 06/26/25 13:24 Depression Screening Interpretation: Negative Thrive Assessment: Date of Thrive Assessment Date Thrive assessed 06/26/25 06/26/25 13:14 Currently or been in a relationship where the following occur: No concerns reported Coding Level of Care Code Est Pt Level 4 (99080) Add On Problem Visit Only Diagnoses Chronic pain of right knee M25.561; G89.29 Chronicity: chronic Attention deficit R41.840 Additional Codes EFREN-7 Assessment Billing - EFREN-7 Assessment Tool: EFREN-7 Assessment 80856 ([id number]) PHQ-9 - 74443 - PHQ-9 Billing: Yes ([id number]) Assessment & Plan Assessment & Plan (1) Right knee pain: Code(s): M25.561 - Pain in right knee Category: Medical Qualifiers: Chronicity: chronic Qualified Code(s): M25.561 - Pain in right knee; G89.29 - Other chronic pain (2) Attention deficit: Code(s): R41.840 - Attention and concentration deficit Category: Medical Plan Attention deficit disorder-trial low dose of XR adderall. Diagnosed in childhood Right knee pain, right tibial pain-follow up ortho. xr ordered tib/fib. 5 day prednisone course Labs ordered Orders: Orders Lyme IgG/IgM w/reflex to WB Today M22.2X1 - Patellofemoral disorders, right knee, M22.2X2 - Patellofemoral disorders, left knee, M25.561 - Pain in right knee, R53.83 - Other fatigue Cyclic Citrullinated Peptide Today M22.2X1 - Patellofemoral disorders, right knee, M22.2X2 - Patellofemoral disorders, left knee, M25.561 - Pain in right knee, R53.83 - Other fatigue Comprehensive Met. Panel Today M25.561 - Pain in right knee, R23.3 - Spontaneous ecchymoses, R41.840 - Attention and concentration deficit, R53.83 - Other fatigue Lipid Panel Today M25.561 - Pain in right knee, R23.3 - Spontaneous ecchymoses, R41.840 - Attention and concentration deficit, R53.83 - Other fatigue Tick-borne Disease Molecular Today M22.2X1 - Patellofemoral disorders, right knee, M22.2X2 - Patellofemoral disorders, left knee, M25.561 - Pain in right knee, R53.83 - Other fatigue Complete Blood Count Auto Diff Today M25.561 - Pain in right knee, R23.3 - Spontaneous ecchymoses, R41.840 - Attention and concentration deficit, R53.83 - Other fatigue TSH reflex Free T4 Today M25.561 - Pain in right knee, R23.3 - Spontaneous ecchymoses, R41.840 - Attention and concentration deficit, R53.83 - Other fatigue XR tibia fibula RT 2V Today M79.604 - Pain in right leg Medications: New dextroamphetamine-amphetamine 10 mg ER (Adderall XR) Partial Fill upon patient request. 10 mg PO DAILY 30 caps 0RF R41.840 - Attention and concentration deficit prednisone 40 mg (2 x 20 mg) PO DAILY 10 tabs 0RF
[2025-06-26 13:17] VITALS: BP 108/67; PULSE 55; RESP 12; TEMP 36.5; O2SAT 100; BMI 24.7
== END 2025-06-26 13:46 | disposition home or self-care (01) ==
LOC: HO.HMCFM 13:03
PROVIDERS: PCP Internal Medicine; Visit Provider Internal Medicine
DX: M25.561 Pain in right knee (principal); G89.29 Other chronic pain; R41.840 Attention and concentration deficit